=== PATIENT | female | born 1970 | race Caucasian/White ===

== ENCOUNTER → 2017-08-21 | Outpatient (CLI) | payer BC ==
[~2017-08-21] MED LIST: ALB17R INH; AZIT500T47 PO; CEP500 PO; CYC10; NAPROXEN; NO ROUTINE MEDS; PRE20 PO; TRA50
--- NOTE | 2017-08-23 10:20 | RADIOLOGY IMAGING REPORT ---
FACILITY: [facility] PATIENT NAME: LOKESH TRAORE : [id number] MR: [id number] V: [id number] EXAM DATE: [id number] ORDERING PHYSICIAN: NAE POLLOCK TECHNOLOGIST: Tish Gonzalez PROCEDURE:BILATERAL DIAGNOSTIC DIGITAL MAMMOGRAM WITH CAD ASSISTED INTERPRETATION & 3D TOMOSYNTHESIS COMPARISON:Prior mammograms 02/26/17, 07/06/16, 06/29/16 Prior breast MR 07/13/16 Right breast Ultrasound of 07/06/16 INDICATIONS:6 MO F/U FINDINGS: Moderately heterogeneous fibroglandular tissue is seen throughout the breasts. The parenchymal pattern has remained stable allowing for difference in mammographic technique & patient positioning. Again noted is a focal area of skin thickening slight skin retraction just inferior of the Right nipple. This is unchanged when compared to patient's baseline mammogram. The previous Right breast Ultrasound and the bilateral breast MR revealed no abnormalities. A 6 month follow-up Right mammogram is recommended to document stability over a 2 year period unless clinical findings warrant more immediate attention. DIAGNOSTIC CATEGORY 3--PROBABLY BENIGN FINDING. RECOMMENDATIONS: SIX MONTH FOLLOW-UP DIAGNOSTIC MAMMOGRAM: RIGHT BREAST. IMPRESSION: BIRADS 3: Probably benign finding 6 Month follow-up Right mammogram recommended as described above. Dictated by: Tanja Agudelo M.D. on 08/21/2017 at 13:58 Transcribed by: ALF on 08/21/2017 at 14:09 Approved by: Tanja Agudelo M.D. on 08/23/2017 at 10:18 [facility]
== END ==
LOC: MAMO 01:17
PROVIDERS: ATTEND Physician Assistant
DX: R92.1 Mammographic calcification found on diagnostic imaging of breast (principal)
CPT/HCPCS: 77062; 77066

== ENCOUNTER → 2018-04-25 | Outpatient (CLI) | payer BC ==
--- NOTE | 2018-04-25 15:35 | RADIOLOGY IMAGING REPORT ---
FACILITY: [facility] PATIENT NAME: LOKESH TRAORE : [id number] MR: [id number] V: [id number] EXAM DATE: [id number] ORDERING PHYSICIAN: NAE POLLOCK TECHNOLOGIST: Tish Gonzalez PROCEDURE:RIGHT DIGITAL DIAGNOSTIC MAMMOGRAM WITH CAD ASSISTED INTERPRETATION & 3D TOMOSYNTHESIS COMPARISON:Prior mammograms 08/21/2017, 02/26/2017, 07/06/2016. INDICATIONS:Right breast 6 month follow-up of skin dimpling. TISSUE DENSITY: Heterogeneously dense, which can obscure small masses. FINDINGS: The mild, smooth dimpling inferior to the nipple on MLO view only is unchanged compared to prior mammograms. No new finding is seen within the Right breast or axilla compared to prior studies. DIAGNOSTIC CATEGORY 2--BENIGN FINDING. RECOMMENDATIONS: ANNUAL BILATERAL SCREENING MAMMOGRAM DUE 08/2018 AND CLINICAL EVALUATION. I discussed the results and recommendation with the patient following this study. Dictated by: Edwige Leal M.D. on 04/25/2018 at 14:42 Transcribed by: ALF on 04/25/2018 at 14:51 Approved by: Edwige Leal M.D. on 04/25/2018 at 15:33 [facility]
== END ==
LOC: MAMO 04:50
PROVIDERS: ATTEND Physician Assistant
DX: R92.1 Mammographic calcification found on diagnostic imaging of breast (principal)
CPT/HCPCS: 77061; 77065

== ENCOUNTER → 2019-01-01 | Outpatient (CLI) | payer OTHER, BC | LOC: LAB 16:09 | PROVIDERS: ATTEND Anesthesiology | DX: Z01.812 Encounter for preprocedural laboratory examination (principal); E07.9 Disorder of thyroid, unspecified; M77.11 Lateral epicondylitis, right elbow; G56.01 Carpal tunnel syndrome, right upper limb | CPT/HCPCS: 36415; 84443 ==